=== PATIENT | male | born 1950 | race Hispanic/Latino ===

== ENCOUNTER 2018-08-11 14:07 | Outpatient (CLI) | payer MEDICARE, OTHER ==
--- NOTE | 2018-08-11 15:08 | XRay Report ---
XRAYCERVICAL SPINE THREE VIEWS: 08/11/18 14:07:00 CLINICAL: Ankylosing spondylitis FINDINGS: Exaggerated cervical lordosis and uniform decrease height of C3, C4 and C5. The disc spaces are widened at C3-4 and C4-5 and are normal at other levels. Large anterior osteophytes at C2-3, C3-4, C4-5 and C5-6. Syndesmophytes are also identified at C2-3 and from C6-7 inferiorly to involve all of the visible thoracic spine levels. Minimal facet joint disease. The odontoid and C1 are normal. No fracture. Normal soft tissues and airway. IMPRESSION: Cervical and thoracic syndesmophytes which are consistent with ankylosing spondylitis. The large upper cervical anterior osteophytes are typical of degenerative disc disease.
== END 2018-08-11 14:08 | disposition home or self-care (01) ==
LOC: SPVIMAG 14:07
PROVIDERS: ATTEND Internal Medicine Rheumatology
DX: M50.30 Other cervical disc degeneration, unspecified cervical region (principal)
CPT/HCPCS: 72040